=== PATIENT | male | born 1980 | race Caucasian/White ===

== ENCOUNTER 2019-11-11 07:32 | Outpatient (CLI) | payer OTHER, SELFPAY ==
--- NOTE | ~2019-11-11 | US_ITS ---
EXAMINATION: US abdomen complete EXAM DATE: 11/11/2019 08:20 INDICATION: Right upper quadrant pain. TECHNIQUE: Multiple grayscale and Doppler images of the complete abdomen were obtained (by a technolo gist who performed the scan) and subsequently reviewed. There is no prior study for comparison. FINDINGS: The abdominal aorta is normal in caliber. Visualized portion IVC is patent. The pancreatic head a nd body are normal in appearance. The pancreatic tail is not visualized. There is echogenic liver parenchyma, hepatic steatosis. There are no focal liver lesions identified. There is no evidence of intrahepatic biliary duct dilation. Portal venous flow was seen in the he patopedal, normal direction and has normal Doppler waveform. Common bile duct measures 4 mm, which is normal. The gallbladder wall is normal in thickness, with ex pected amount of distention. No sonographic evidence of pericholecystic fluid. There is no cholelit hiases. Technologist performing exam reports patient did not demonstrate sonographic Wang's sign. Please note that this sign is less reliable in patients who have received pain medication. Right kidney: There is normal contour and echogenicity. It measures 11.0 x 4.5 x 4.9 centimeters. There are no focal renal lesions identified. There is no hydronephrosis. Left kidney: There is normal contour and echogenicity. It measures 11.4 x 7.4 x 5.4 centimeters. T here are no focal renal lesions identified. There is no hydronephrosis. The spleen measures 11.8 centimeters and is morphologically normal. IMPRESSION: 1. Unremarkable complete abdominal ultrasound exam. Reviewed, dictated and finalized at location B.
== END 2019-11-11 07:33 | disposition home or self-care (01) ==
LOC: ANHIMG 07:41
PROVIDERS: PCP Emergency Medicine; Visit Provider Emergency Medicine
DX: R10.9 Unspecified abdominal pain (principal)
CPT/HCPCS: 76700

== ENCOUNTER 2022-01-02 07:29 | Outpatient (CLI) | payer OTHER, SELFPAY ==
--- NOTE | 2022-01-16 00:26 | WPDHOMESLEEP ---
Sleep Study - Home Unattended Date of Study: 01/02/22 Ordering Provider: Javier Tomlin APRN Interpreting Provider: Apple Early DO Home Sleep Study Type: Watch PAT Height: 1.93 m Weight: 85.275 kg Body Mass Index: 22.8 Neck Circumference (inches): 15.5 Reason for Sleep Study Unrefreshing sleep, daytime hypersomnia Sleep History The patient is a 41-year-old male with alcoholism, hypertension, hyperlipidemia, anxiety and depression that had a sleep study ordered by the pulmonary office for evaluation of sleep apnea. Habits: Drinks 2 sodas per day. Smokes 1 ppd x 19 years. Drinks 12 beers/day for past 10 years. Uses marijuana rarely. *The patient did not fill out the sleep intake forms.* [facility] Past Medical History Medical History Alcoholism HLD (hyperlipidemia) HTN (hypertension) Mixed anxiety and depressive disorder Tinea corporis Family History Family History Father Alcoholism Social History Social History Smoking packs per day: 1 Smoking cigarettes per day: 20.0 Years smoked: 19 Smoking pack-years: 19.00 Smoking status: Current every day smoker Tobacco type: cigarettes Alcohol intake: current Alcohol use details: 12 pack beer/night for past 10 years Substance use: current Substance use type: marijuana Other substance usage details: Rare marijuana use Additional occupation/education comments: Layout Artist Medications Home Medications Medication Instructions Recorded Confirmed Type eszopiclone 1 mg tablet 1 mg PO QHS #2 tabs 11/01/21 11/01/21 Rx gabapentin 300 mg capsule 300 mg PO TID 11/01/21 11/01/21 History ketoconazole 2 % topical cream 1 applic topical DAILY 11/01/21 11/01/21 History lisinopril 20 mg tablet 20 mg PO DAILY 11/01/21 11/01/21 History trazodone 50 mg tablet 50 mg PO QHS PRN 11/01/21 11/01/21 History Sleep Procedure The sleep study was completed using WatchPAT a technically adequate device with seven channels: peripheral arterial tone, actigraphy, body position, snore, respiratory movement, pulse oximetry, sleep staging, and heart rate. Prior to using the device, the patient received verbal and written instructions for its application and was provided with the help desk phone number for additional telephonic instruction with 24-hour availability of qualified personnel to answer questions. The study was scored using CMS guidelines. Sleep Architecture The patient had a total recording time of 8 hours 32 minutes and total sleep time of 7 hours 19 minutes. The sleep efficiency was 85.66%. Sleep latency was 31 minutes and REM latency was 69 minutes. The patient had 6 awakenings. The patient spent 44.98% of total sleep time in light sleep, 22.1% of total sleep time in deep sleep and 32.92% of total sleep time in REM sleep. The patient spent 255 minutes, 58.1% of total sleep time in the supine position. Respiratory Analysis The patient had an overall AHI of 15.8 and a central apnea index of 0.6. The REM AHI was 11.7. No Mickey-Hawkins respirations were seen. Oximetry Data The patient had an average oxygen saturation of 96% with a minimum of 86% and a maximum of 99%. The patient had 113 desaturations resulting in an oxygen desaturation index of 15.7. The patient had 108 desaturations between 4-9% and 5 desaturations between 10-20%. The patient spent 0.6 minutes with an oxygen saturation less than 88%. Snoring Profile Snoring was present throughout the majority of the study. Cardiac Profile The patient had an average pulse of 66 beats per minute with a minimum pulse of 48 beats per minute and a maximum pulse of 100 beats per minute. Assessment and Plan Assessment and Plan (1) CHRIST (obstructive sleep apnea): Code(s): G47.33 - Obstructive sleep apnea (adult) (pediatric) Statu
[2022-01-16 00:34] VITALS: BMI 22.8
== END 2022-01-03 11:53 | disposition home or self-care (01) ==
PROVIDERS: PCP Nurse Practitioner Family; Visit Provider Nurse Practitioner Family
DX: G47.33 Obstructive sleep apnea (adult) (pediatric) (principal)
CPT/HCPCS: 95800

== ENCOUNTER 2025-03-13 16:19 | Emergency (ER) | payer SELFPAY ==
--- NOTE | ~2025-03-13 | XR_ITS ---
EXAMINATION: XR ribs RT 2V, 03/13/2025 16:40 CDT HISTORY: fall 1 wk ago, pain anterior/lateral lower right ribs COMPARISON: No comparisons available. Findings: No acute fracture or malalignment. No significant degenerative changes. Soft tissues unremarkable. Impression: No acute fracture or malalignment. Reviewed, dictated and finalized at location P. Impression: No acute fracture or malalignment.
--- NOTE | 2025-03-13 16:22 | ED.GENADULT ---
HPI - General Adult General Chief complaint: Unspecified Stated complaint: R Rib Pain Time Seen by Provider: 03/13/25 16:22 Source: patient Mode of arrival: ambulatory Limitations: no limitations History of Present Illness HPI narrative: 45-year-old male patient presents to the [facility] with complaints of right rib pain. Patient states about a week ago he slipped and fell in his basement and had a shelf on the wall. Patient states since then he has been having some pain to the right rib area. Patient states been taking Tylenol ibuprofen for the pain. Patient has an active smoker but denies any chest pain or shortness of breath. Does admit to a Mild pain with inhalation. Related Data Home Medications ?Medication ?Instructions ?Recorded ?Confirmed ?Last Taken ?Type gabapentin 300 mg capsule 300 mg PO TID 11/01/21 11/01/21 Unknown History ketoconazole 2 % topical cream 1 applic topical DAILY 11/01/21 11/01/21 Unknown History lisinopril 20 mg tablet 20 mg PO DAILY 11/01/21 11/01/21 Unknown History trazodone 50 mg tablet 50 mg PO QHS PRN 11/01/21 11/01/21 Unknown History Allergies Allergy/AdvReac Type Severity Reaction Status Date / Time No Known Allergies Allergy Verified 03/13/25 16:26 Review of Systems Review of Systems: CONSTITUTIONAL: Denies fever, chills, or sweats. EYES: Denies visual changes, redness, or discharge. ENT: Denies rhinorrhea, congestion, sore throat, or otalgia. CARDIOVASCULAR: Denies chest pain, palpitations, or edema. RESPIRATORY: Denies cough or dyspnea. positive right rib pain x1 week GASTROINTESTINAL: Denies abdominal pain, nausea, vomiting, or diarrhea. GENITOURINARY: Denies dysuria or hematuria. SKIN: Denies rash or itching. MUSCULOSKELETAL: Denies back pain, joint pain, or myalgia. NEUROLOGIC: Denies headache, numbness, or weakness. PSYCHIATRIC: Denies anxiety or depression. [facility] Past Medical History Medical History Tinea corporis HTN (hypertension) Alcoholism Mixed anxiety and depressive disorder HLD (hyperlipidemia) Family History Family History Father Alcoholism Social History Social History Smoking packs per day: 1 Smoking cigarettes per day: 20.0 Years smoked: 19 Smoking pack-years: 19.00 Smoking status: Current every day smoker Tobacco type: cigarettes Alcohol intake: current Alcohol use details: 12 pack beer/night for past 10 years Substance use: current Substance use type: marijuana Other substance usage details: Rare marijuana use Living arrangements: with family Occupation/Education: occupation Additional occupation/education comments: [employer] Comments at the time of my signature I agree with nursing past medical history, surgical, social, and family history. There is no relevant family history pertinent to the presenting complaint. Exam Narrative: GENERAL: Well-appearing, well-nourished, and in no acute distress. HEAD: Normocephalic, atraumatic. EYES: PERRLA and EOMI. ENT: Nares clear, no rhinorrhea or epistaxis. Mucous membranes moist. NECK: Supple. No lymphadenopathy CHEST: Clear to auscultation. No respiratory distress. patient has tenderness noted to the 4th and 5th lateral rib area on the right side. There is no obvious bruising noted. HEART: Regular rate and rhythm. No murmur heard. Normal peripheral pulses. ABDOMEN: Soft, nontender, nondistended, normal active bowel sounds. EXTREMITIES: Normal range of motion. No edema. SKIN: Warm, dry, Patient has a diffuse rash noted to the entire trunk and bilateral arms the rash does appear irregular with some clearing to the middle does appear to be a fungal rash. Patient states he has been diagnosed with fungal rash before the past and was told to use Selsun Blue but he has not used it for several months. NEURO: No focal deficits. Alert and oriented x3. Course Course Level of Care: Express Care Visit Vital Signs Vital signs: Vital Signs Temperature 35.9 C L 03/13/25 16:29 Pulse Rate 93 03/13/25 16: Respiratory Rate 16 03/13/25 16:29 Blood Pressure 149/100 H 03/13/25 16: Pulse Oximetry 100 03/13/25 16: Temperature 35.9 C L 03/13/25 16: Pulse Rate 93 03/13/25 16:29 Respiratory Rate 16 03/13/25 16: Blood Pressure 149/100 H 03/13/25 16:29 Pulse Oximetry 100 03/13/25 16:29 Vital signs reviewed. The patient has been informed that they may have pre-hypertension or Hypertension based on a BP reading in the department. I recommend that the patient call the primary care provider listed on their discharge instructions or a physician of their choice this week to arrange follow up for further evaluation of possible pre-hypertension or Hypertension Medical Decision Making MDM Narrative Medical decision making narrative: Discussed with patient that his x-ray on the ribs is negative for any fracture most likely a rib contusion. Discussed with him to continue using the Selsun Blue should be using it at least 3 times a week and should probably use it for the next 12 weeks. Discussed with him that these fungal rash this can be very hard to get rid of. Discussed with patient to continue to take Tylenol ibuprofen as needed for pain and apply ice or heat to the area to help with pain as well. Patient verbalized understanding denies any other questions or concerns at this time. Differential Diagnosis Differential Diagnosis: Differential diagnosis: Contact dermatitis, poison mercy, poison sumac, psoriasis, eczema, allergic reaction, drug reaction, scabies, tinea syphilis, lung disease, viral exanthema, pityriasis, erythema multiforme. STEMI/ACS, AAA, PE, spontaneous pneumothorax, cardiac tamponade, esophageal rupture, pneumonia, GERD, muscle-skeletal pain or trauma, endocarditis, cocaine-related ischemia, pericarditis, URI, bronchitis. Vital Signs Vital Signs: Vital Signs Temperature 35.9 C L 03/13/25 16:29 Pulse Rate 93 03/13/25 16:29 Respiratory Rate 16 03/13/25 16:29 Blood Pressure 149/100 H 03/13/25 16:29 Pulse Oximetry 100 03/13/25 16:29 Temperature 35.9 C L 03/13/25 16:29 Pulse Rate 93 03/13/25 16:29 Respiratory Rate 16 03/13/25 16:29 Blood Pressure 149/100 H 03/13/25 16:29 Pulse Oximetry 100 03/13/25 16:29 Imaging Data Radiologist's impression: [facility] [place] [facility] [place] [address] XRay Report Signed Patient: Ron Hirsch : 1980 MR#: [id number] Age: 45 Acct:[id number] [facility] ADM Date: 03/13/[address]: Ordering Physician: Kiana Siegel APRN Date of Service: 03/13/25 Procedure(s): XR ribs RT Accession Number(s): [id number] cc: CLOUD ENGAGEMENT PARTNER PHYSICIAN; Kiana Siegel APRN~ EXAMINATION: XR ribs RT 2V, 03/13/2025 16:40 CDT HISTORY: fall 1 wk ago, pain anterior/lateral lower right ribs COMPARISON: No comparisons available. Findings: No acute fracture or malalignment. No significant degenerative changes. Soft tissues unremarkable. Impression: No acute fracture or malalignment. Reviewed, dictated and finalized at location P. Discharge Plan Discharge Clinical Impression: Contusion of rib on right side, Tinea versicolor Patient Disposition: Home Condition: Stable Instructions: Antibiotic Form, Skin Yeast Infection (ED), Rib Contusion (ED) Additional Instructions: continue using Tylenol ibuprofen as needed for rib pain. May use cold or warm compress to the area to help with pain. This should resolve on its own no fracture was seen today in the ribs. For the skin rash continue to use Selsun Blue 3 times per week for least 12 weeks. May use [id number] Lamisil to help with any itching of the rash. If it does not resolve or improve after 12 weeks please go back to see your doctor for other treatment Options Patient Language: Burundian Prescriptions: No Action gabapentin 300 mg capsule 300 mg PO TID ketoconazole 2 % cream 1 applic topical DAILY lisinopril 20 mg tablet 20 mg PO DAILY trazodone 50 mg tablet 50 mg PO QHS PRN eszopiclone 1 mg tablet 1 mg PO QHS Qty: 2 0RF Rx Instructions: Take 1 tablet on a free night 45 minutes before bedtime; save 1 tablet for sleep study. Follow-up/Referrals: UNKNOWN,DOCTOR [Non-Staff] Time of Disposition: 17:02
[2025-03-13 16:29] VITALS: BP 149/100; PULSE 93; RESP 16; TEMP 35.9; O2SAT 100
== END 2025-03-13 17:05 | disposition home or self-care (01) ==
PROVIDERS: Emergency Provider Nurse Practitioner Family
DX: S20.211A Contusion of right front wall of thorax, initial encounter (principal); W01.0XXA Fall on same level from slipping, tripping and stumbling without subsequent striking against object, initial encounter; B36.0 Pityriasis versicolor; I10 Essential (primary) hypertension; E78.5 Hyperlipidemia, unspecified; F41.8 Other specified anxiety disorders; F17.210 Nicotine dependence, cigarettes, uncomplicated
CPT/HCPCS: 71100; 99213; G0463